=== PATIENT | male | born 1960 | race Caucasian/White ===

== ENCOUNTER 2020-01-04 18:10 | Emergency (ER) | payer OTHER ==
[~2020-01-04] VITALS: Ht 172.7 cm; Wt 65.8 kg
--- OUTSIDE RECORDS SUMMARY | ~2020-01-04 | XMS | Encounter Summary ---
Demographics + + + | Address | [address] | | | [place] [address] | + + + | Home Phone | | + + + | Preferred Language | Unknown | + + + | Marital Status | | + + + | Taoism Affiliation | Unknown | + + + | Race | Unknown | + + + | Ethnic Group | Unknown | + + + Author + + + | Author | [facility] | | | and [facility] | + + + | Organization | [facility] | | | and [facility] | + + + | Address | Unknown | + + + | Phone | Unavailable | + + + Support + + +---------+ + | Name | Relationship | Address | Phone | + + +---------+ + | Gayatri Pepe | ECON | Unknown | | + + +---------+ + Care Team Providers + +------+ + | Care Home Sales Consultant Name | Role | Phone | + +------+ + PCP | Unavailable | + +------+ + Encounter Details +--------+ + + + + | Date | Type | Department | Care Team | Description | +--------+ + + + + | 02/01/ | Hospital | C GENERIC IP | Conversion | Diagnosis unknown | | 2016 | Encounter | CONVERSION [address]P [address] | Transaction, | | | | | [address] | Provider Unknown | | | | | [place] | | | | | | [phone] | (Fax) | | | | | | | | +--------+ + + + + Social History + +-------+ +--------+------+ | Tobacco Use | Types | Packs/Day | Years | Date | | | | | Used | | + +-------+ +--------+------+ | Never Assessed | | | | | + +-------+ +--------+------+ + + + | Sex Assigned at | Date Recorded | | | | + + + | Not on file | | + + + + + + + | Job Start Date | Occupation | Industry | + + + + | Not on file | Not on file | Not on file | + + + + + + + + | Travel History | Travel Start | Travel End | + + + + + + | No recent travel history available. | + + documented as of this encounter Plan of Treatment Not on filedocumented as of this encounter Procedures + +--------+ + + + | Procedure Name | Priori | Date/Time | Associated Diagnosis | Comments | | | ty | | | | + +--------+ + + + | CT HEAD WO CONTRAST | Routin | 02/01/2017 | | Results for this | | | e | 9:32 PM | | procedure are in the | | | | PDT | | results section. | + +--------+ + + + documented in this encounter Results CT Head wo Contrast (02/01/2017 9:32 PM PDT) + + | Specimen | + + | | + + + + + | Narrative | Performed At | + + + | This is a non-reportable procedure without a radiologist report and | | | is used for image storage only | | + + + + + | Procedure Note | + + | David Ellis - 04/19/2019 8:40 AM PDT This is a non-reportable procedure | | without a radiologist report and isused for image storage only | + + documented in this encounter Visit Diagnoses + + | Diagnosis | + + | Diagnosis unknown Other unknown and unspecified cause of morbidity or mortality | + + documented in this encounter"
--- OUTSIDE RECORDS SUMMARY | ~2020-01-04 | XMS | Clinical Summary ---
Demographics + + + | Address | [address] | | | [place] [address] | + + + | Home Phone | | + + + | Preferred Language | Unknown | + + + | Marital Status | | + + + | Mormon Affiliation | Unknown | + + + | Race | Unknown | + + + | Ethnic Group | Unknown | + + + Author + + + | Author | [facility] (Historical as of | | | 04-21-19) | + + + | Organization | [facility] (Historical as of | | | 04-21-19) | + + + | Address | Unknown | + + + | Phone | Unavailable | + + + Support + + +---------+ + | Name | Relationship | Address | Phone | + + +---------+ + | Gayatri Young | ECON | Unknown | | + + +---------+ + Care Team Providers + +------+ + | Care Curriculum Consultant Name | Role | Phone | + +------+ + | Dr. Dion | PP | Unavailable | + +------+ + Allergies + + + + + + | Active Allergy | Reactions | Severity | Noted | Comments | | | | | Date | | + + + + + + | Morphine | Other (See Comments) | Medium | 02/03/20 | Pt unable to tell | | | | | 17 | us rxn. Allergy | | | | | | reported from [facility] | | | | | | [facility] that | | | | | | causes patient to be | | | | | | combative. | + + + + + + Current Medications No known medications Active Problems + + + | Problem | Noted Date | + + + | Alcoholic intoxication with complication (HCC) | 02/02/2017 | + + + | Alcohol abuse | 02/02/2017 | + + + | Fall | 02/02/2017 | + + + | Head injury, acute, with loss of consciousness 20 minutes (HCC) | 02/02/2017 | + + + | Laceration of head | 02/02/2017 | + + + Immunizations + + + + | Name | Dates Previously Given | Next Due | + + + + | Pneumococcal | 02/02/2017 | | | Polysaccharide | | | | 23-valent | | | + + + + Social History + +-------+ +--------+------+ | Tobacco Use | Types | Packs/Day | Years | Date | | | | | Used | | + +-------+ +--------+------+ | Current Every Day | | 1 | | | | Smoker | | | | | + +-------+ +--------+------+ + + | Tobacco Cessation: Counseling Given: Yes | + + + + + | Sex Assigned at | Date Recorded | | | | + + + | Not on file | | + + + Last Filed Vital Signs + + + + | Vital Sign | Reading | Time Taken | + + + + | Blood Pressure | 150/95 | 02/03/2017 11:53 AM PDT | + + + + | Pulse | 100 | 02/03/2017 11:53 AM PDT | + + + + | Temperature | 36.2 C (97.2 F) | 02/03/2017 11:53 AM PDT | + + + + | Respiratory Rate | 20 | 02/03/2017 11:53 AM PDT | + + + + | Oxygen Saturation | 98% | 02/03/2017 11:53 AM PDT | + + + + | Inhaled Oxygen | - | - | | Concentration | | | + + + + | Weight | 69.3 kg (152 lb 11.2 | 02/03/2017 3:58 AM PDT | | | oz) | | + + + + | Height | 177.8 cm (5' 10") | 02/01/2017 11:55 PM PDT | + + + + | Body Mass Index | 21.91 | 02/03/2017 3:58 AM PDT | + + + + Plan of Treatment + + + + + | Health Maintenance | Due Date | Last Done | Comments | + + + + + | Vaccine: | | | | | Dtap/Tdap/Td (1 - | 8 | | | | Tdap) | | | | + + + + + | Colon Cancer | | | | | Screening | 9 | | | | (Colonoscopy) | | | | + + + + + | Vaccine: Zoster (1 | | | | | of 2) | 9 | | | + + + + + | Vaccine: Influenza | | | | | (Season Ended) | 0 | | | + + + + + | Vaccine: | Completed | 02/02/2017 | | | Pneumococcal 19-64 | | | | | (PPSV23 only) Medium | | | | | Risk | | | | + + + + + Results Not on filefrom Last 3 Months Insurance + +--------+ +------+-------+ + | Payer | Benefi | Subscriber | Type | Phone | Address | | | t Plan | ID | | | | | | / | | | | | | | Group | | | | | + +--------+ +------+-------+ + | MEDICAID | MEDICA | [id number] | | | [address] | | | ID | | | | [place] | | | OTHER | | | | [phone] | | | STATE | | | | | + +--------+ +------+-------+ + + +--------+ +--------+ + + | Guarantor Name | Accoun | Relation to | Date | Phone | Billing Address | | | t Type | Patient | of | | | | | | | | | | + +--------+ +--------+ + + | OSMAR YOUNG | Person | Self [birth year] Home: | [address] | | [place] | vivian/Zachery | | [phone] | [phone] [place] [address] | | | [place] | | | [phone] | | + +--------+ +--------+ + +
--- OUTSIDE RECORDS SUMMARY | ~2020-01-04 | XMS | Encounter Summary ---
Demographics + + + | Address | [address] | | | [place] [address] | + + + | Home Phone | | + + + | Preferred Language | Unknown | + + + | Marital Status | | + + + | Adventist Affiliation | Unknown | + + + | Race | Unknown | + + + | Ethnic Group | Unknown | + + + Author + + + | Author | [facility] | | | and [place] | + + + | Organization | [facility] | | | and [facility] [...] Team Providers + +------+ + | Care Commissary Agent Name | Role | Phone | + [...] [place] | | | | | | [phone] | (Fax) | | | | | [...]
--- OUTSIDE RECORDS SUMMARY | ~2020-01-04 | XMS | Encounter Summary ---
Demographics + + + | Address | [address] | | | [place] [address] | + + + | Home Phone | | + + + | Preferred Language | Unknown | + + + | Marital Status | | + + + | Muslim Affiliation | Unknown | + + + | Race | Unknown | + + + | Ethnic Group | Unknown | + + + Author + + + | Author | [facility] | | | and [place] | + + + | Organization | [facility] | | | and [place] | [...] Team Providers + +------+ + | Care Field Engineer Name | Role | Phone | + +------+ + PCP | Unavailable | + +------+ + Encounter Details +--------+ + + + + | Date | Type | Department | Care Team | Description | +--------+ + + + + | 02/01/ | Hospital | [facility] | Jinny Machado DO | | | 2017 - | Encounter | [facility] | [address] | | | | | CARE FLO[address] | [place] [address] | | | 02/03/ | | [address] | [phone] | | | 2017 | | [place], [place] | | | | | | [address] | | | | | | [phone] | | | +--------+ + + + [...] + + documented as of this encounter Last Filed Vital Signs + + + + + | Vital Sign | Reading | Time Taken | Comments | + + + + + | Blood Pressure | 150/95 | 02/03/2017 11:54 AM | | | | | PDT | | + + + + + | Pulse | 100 | 02/03/2017 11:54 AM | | | | | PDT | | + + + + + | Temperature | 36.2 C (97.2 F) | 02/03/2017 11:54 AM | | | | | PDT | | + + + + + | Respiratory Rate | 20 | 02/03/2017 11:54 AM | | | | | PDT | | + + + + + | Oxygen Saturation | - | - | | + + + + + | Inhaled Oxygen | - | - | | | Concentration | | | | + + + + + | Weight | 69.3 kg (152 lb 11.2 | 02/03/2017 11:54 AM | | | | oz) | PDT | | + + + + + | Height | 177.8 cm (5' 10") | 02/03/2017 11:54 AM | | | | | PDT | | + + + + + | Body Mass Index | 21.91 | 02/03/2017 11:54 AM | | | | | PDT | | + + + + + documented in this encounter Discharge Summaries Rk Miranda MD - 02/03/2017 11:11 AM PDT Discharge Summaries by BONNIE Emery at 02/03/17 1111 Author: BONNIE Emery Service: Hospitalist Author Type: Resident-Y1 Filed: 02/03/17 1404 Date of Service: 02/03/17 1111 Status: Attested Mineral Mixer: BONNIE Emery (Resident-Y1) Cosigner: Mercedes Hester MD at 02/03/17 190 7 Attestation signed by Mercedes Hester MD at 02/03/17 1907 Patient seen and examined with Resident, agree with plan. Mercedes Hester MD [facility] Service: Hospitalist Discharge Summary Pt: Osmar Pepe AGE/SEX: 56 y.o. male ROOM: [address] [place] [address] PCP: PER PT NONE : 1960 Admit date: 02/01/2017 Discharge date and time: 02/03/2017 1:36 PM Admitting Physician: Jinny Machado DO Discharge Physician: Mercedes Hester MD (attending physician) Rk Miranda MD (resident physician) Consults: Treatment Team: Consulting Physician: Evan Martinez MD Admitting Provider: Jinny Machado DO Primary Discharge Diagnoses: Active Problems: Alcoholic intoxication with complication (HCC) Alcohol abuse Fall Head injury, acute, with loss of consciousness 20 minutes (HCC) Laceration of head Resolved Problems: * No resolved hospital problems. * Discharged Condition: good Significant Diagnostic Studies: Ct Head Without Contrast 02/03/2017 1. Small 5 mm parenchymal hemorrhage in the anterior left frontal lobe, stable. and Hospital Course: As per H&P by Jinny Machado DO: The patient is a 56 y.o. male with significant past medical history of alcohol abuse and as thma who presents from [facility] ED after he had a witness fall and LOC. His report ed to the ED physician that they had been sitting in a hot tub for about 15 minutes. He got out and was walking and fell and struck his head on the pavement and had about 20 minutes LO C. Upon arrival in ED he was "combative, swinging and cursing". Pt became cooperative when p dirk were called. He was also given a total of 4 mg IV ativan prior to transfer and was adam adamaris in 4-point restraints. He was sent to the ICU for close monitoring d/t finding of small (5mm) intraparenchymal hemorrhage in the left frontal lobe. CT head was otherwise neg. His c ervical spine CT was degraded some by motion artifact but did not show e/o fracture or dislo cation. Pt arrived to ICU without C-collar in place and obtunded. C-collar was placed as c-s pine not able to be cleared yet. Patient was placed on alcohol withdrawal protocol. Patient stabilized and was transferred t hospitalist service. Patient's condition improve and had a CIWA score of 4. Repeat head CT on day of discharge showed no progression of hemorrhage. Neurology cleared patient for disc harge and recommended repeat head CT without contrast in 4 weeks prior to follow up appointm ent. He also recommended 3 more days of Keppra. This was discussed with patient who agreed w ith plan. I also advised patient to stop drinking alcohol and to consider counseling for alc ohol addition. He and his stated they are working on it. said the house is now alc ohol free. Patient was stable for discharge home. Discharge Vitals: Filed Vitals: 02/03/17 0349 02/03/17 0358 02/03/17 0820 02/03/17 1153 BP: 149/87 154/104 150/95 Pulse: 77 86 100 Temp: 98.6 F (37 C) 97.9 F (36.6 C) 97.2 F (36.2 C) TempSrc: Oral Oral Axillary Resp: 24 22 20 Height: Weight: 69.264 kg (152 lb 11.2 oz) SpO2: 96% 97% 98% Discharge Exam: General Appearance: thin, elderly male, Alert and cooperative, and appears to be in no acut e distress. HEENNT: Normocephalic and atraumatic. EOMI. Hearing grossly intact. No nasal discharge. No JVD present. No tracheal deviation. 2 cm wound on left spiritism, healing, dried blood noted. M oist oral mucosa Cardiovascular: Regular rate, Rhythm is regular. No murmurs appreciated. Peripheral pulses intact. Pulmonary/Chest: Lungs are clear to auscultation bilaterally. Effort is normal. Normal sho th sounds. Abdominal: Soft, nontender, large ventral hernia noted . Normoactive bowel sounds. No guard ing or rebound tenderness. Extremities: no swelling or erythema of lower extremities bilaterally Neurological: Oriented to person, place, and time. Skin: Skin is warm and dry. No rash noted. Bruising noted on left upper extremity Psychiatric:The patient was able to demonstrate good judgement and reason, without hallucin ations, no abnormal affect or abnormal behaviors during the examination. LABS: Recent Labs Lab 02/03/17615 WBC 8.03 HGB 13.2 HCT 39.5 PLT 192 NEUTOPHILPCT 74.81 MONOPCT 7.90 Recent Labs Lab 02/03/1761502/02/17 1038 02/02/17 0414 NA 140 -- 140 K 4.1 4.2 4.0 CL 104 -- 107 CO2 27 -- 22* BUN 16 -- 14 CREATININE 1.1 -- 1.0 Invalid input(s): LABALBU Recent Labs Lab 02/03/1761502/02/17 1038 02/02/17 0414 MG 1.9 2.1 2.0 Recent Labs Lab 02/02/174 CKTOTAL 261 Disposition: Home Patient Instructions: Medication List START taking these medications levETIRAcetam 500 MG tablet QTY: 7 tablet Refills: 0 Commonly known as: KEPPRA Take 1 tablet by mouth 2 (two) times daily. Where to Get Your Medications You can get these medications from any pharmacy Bring a paper prescription for each of these medications - levETIRAcetam 500 MG tablet Evan Martinez MD [address] [facility] [address] In 4 weeks Neurology Follow up [facility] [address] [place] [address] Schedule an appointment as soon as possible for a visit in 4 weeks Please get Head CT done before seeing Neurology Signed: Rk Miranda MD-R1 02/03/2017 1:36 PM Junito Archer MD, have reviewed this note. documented in this en counter Progress Notes Conversion Transaction, Provider Unknown - 02/03/2017 2:36 PM PDTFormatting of this note m ight be different from the original. Nurse Progress Note by Anabel Resendiz RN at 02/03/17 0099 Author: Anabel Resendiz RN Service: (none) Author Type: Registered Nurse Filed: 02/03/17 3658 Date of Service: 02/03/17 1436 Status: Signed Mineral Mixer: Anabel Resendiz RN (Registered Nurse) Pt discharged home via private vehicle with spouse. Discharge instructions and prescriptio n given and questions answered. No concerns. Pt walked out with RN at his insistence. CLAIRE Resendiz RN onver deanne Transaction, Provider Unknown - 02/03/2017 5:45 AM PDT Nurse Progress Note by Madison Garcia RN at 02/03/17544 Author: Madison Garcia RN Service: (none) Author Type: Registered Nurse Filed: 02/03/17546 Date of Service: 02/03/17544 Status: Signed Mineral Mixer: Madison Garcia RN (Registered Nurse) Patient slept most of shift. He continues to have some tremors in hands while awake. CIWA h ighest score was 4. He is still impulsive and gets out of bed without calling but appears [facility] on his feet. He is voiding but did not use urinal. Bed alarm and tab alarm used for saf ety. onver deanne Transaction, Provider Unknown - 02/02/2017 5:13 AM PDT Pharmacy Note by Shirley Campa RPH at 02/02/17512 Author: Shirley Campa RPH Service: Pharmacy Author Type: Pharmacist Filed: 02/02/17512 Date of Service: 02/02/17512 Status: Signed Mineral Mixer: Shirley Campa RPH (Pharmacist) Clinical Pharmacy Note: Renal Monitoring Height: 177.8 cm Weight: 69.3 kg CREATININE: 1 (02/02/17 0414) Estimated creatinine clearance - 79.9 mL/min Currently there are no medications needing to be adjusted. Pharmacy will continue to monito r for changes in medication orders and in renal function and adjust accordingly per protocol . Shirley Campa PharmD 02/02/2017 5:13 AM docume nted in this encounter Plan of Treatment Not on filedocumented as of this encounter Procedures + +--------+ + + + | Procedure Name | Priori | Date/Time | Associated Diagnosis | Comments | | | ty | | | | + +--------+ + + + | CT HEAD WO CONTRAST | Routin | 02/03/2017 | | Results for this | | | e | 7:00 AM | | procedure are in the | | | | PDT | | results section. | + +--------+ + + + | EXTERNAL LAB: CBC | Routin | 02/03/2017 | | Results for this | | | e | 6:16 AM | | procedure are in the | | | | PDT | | results section. | + +--------+ + + + | PHOSPHORUS | Routin | 02/03/2017 | | Results for this | | | e | 6:16 AM | | procedure are in the | | | | PDT | | results section. | + +--------+ + + + | MAGNESIUM | Routin | 02/03/2017 | | Results for this | | | e | 6:16 AM | | procedure are in the | | | | PDT | | results section. | + +--------+ + + + | BASIC METABOLIC | Routin | 02/03/2017 | | Results for this | | PANEL | e | 6:16 AM | | procedure are in the | | | | PDT | | results section. | + +--------+ + + + | POTASSIUM | Routin | 02/02/2017 | | Results for this | | | e | 10:38 AM | | procedure are in the | | | | PDT | | results section. | + +--------+ + + + | MAGNESIUM | Routin | 02/02/2017 | | Results for this | | | e | 10:38 AM | | procedure are in the | | | | PDT | | results section. | + +--------+ + + + | LIPID PANEL | Routin | 02/02/2017 | | Results for this | | | e | 4:14 AM | | procedure are in the | | | | PDT | | results section. | + +--------+ + + + | PHOSPHORUS | Routin | 02/02/2017 | | Results for this | | | e | 4:14 AM | | procedure are in the | | | | PDT | | results section. | + +--------+ + + + | MAGNESIUM | Routin | 02/02/2017 | | Results for this | | | e | 4:14 AM | | procedure are in the | | | | PDT | | results section. | + +--------+ + + + | HEMOGLOBIN A1C | Routin | 02/02/2017 | | Results for this | | | e | 4:14 AM | | procedure are in the | | | | PDT | | results section. | + +--------+ + + + | CK TOTAL | Routin | 02/02/2017 | | Results for this | | | e | 4:14 AM | | procedure are in the | | | | PDT | | results section. | + +--------+ + + + | BASIC METABOLIC | Routin | 02/02/2017 | | Results for this | | PANEL | e | 4:14 AM | | procedure are in the | | | | PDT | | results section. | + +--------+ + + + | CT HEAD WO CONTRAST | Routin | 02/02/2017 | | Results for this | | | e | 2:19 AM | | procedure are in the | | | | PDT | | results section. | + +--------+ + + + | DRUGS OF ABUSE | Routin | 02/02/2017 | | Results for this | | SCREEN, URINE (H) | e | 1:14 AM | | procedure are in the | | | | PDT | | results section. | + +--------+ + + + | MRSA NAAT | Timed | 02/02/2017 | | Results for this | | | | 12:20 AM | | procedure are in the | | | | PDT | | results section. | + +--------+ + + + | POC GLUCOSE | Routin | 02/02/2017 | | Results for this | | | e | 12:02 AM | | procedure are in the | | | | PDT | | results section. | + +--------+ + + + documented in this encounter Results CT Head wo Contrast (02/03/2017 7:00 AM PDT) + + | Specimen | + + | | + + + + + | Impressions | Performed At | + + + | 1. Small 5 mm parenchymal hemorrhage in the anterior left frontal | | | lobe, stable. Electronically signed by Momo Cooper DO on | | | 02/03/2017 7:24 AM | | + + + + + + | Narrative | Performed At | + + + | OSMAR PEPE [address] HEAD WO | | | CONTRAST 02/03/2017 7:00 AM INDICATION: Concussion COMPARISON: | | | 02/02/2017 TECHNIQUE: CT scan of the head without contrast. | | | Helically acquired axial images were obtained. 5 mm thick axial | | | images were reconstructed of the head. Dose reduction techniques were | | | used including automated exposure control, iterative reconstruction | | | technique, and/or automated adjustable mAs based on patient size. | | | FINDINGS: Small parenchymal hemorrhage within the anterior left | | | frontal lobe measuring 5 mm, stable. Mild diffuse cerebral atrophy. No | | | mass or midline shift. Mucous retention cyst left maxillary sinus. | | | Mild amount of fluid within the left mastoid sinus. | | + + + + + | Procedure Note | + + | David Ellis Conversion - 04/19/2019 8:40 AM PDT OSMAR [id number] | | years MaleCT HEAD WO CONTRAST02/03/2017 7:00 AM INDICATION: Concussion COMPARISON: | | 02/02/2017 TECHNIQUE: CT scan of the head without contrast. Helically acquired axial | | images were obtained. 5 mm thick axial images were reconstructed of the head. Dose | | reduction techniques were used including automated exposure control, iterative | | reconstruction technique, and/or automated adjustable mAs based on patient size. | | FINDINGS: Small parenchymal hemorrhage within the anterior left frontal lobe measuring 5 | | mm, stable. Mild diffuse cerebral atrophy. No mass or midline shift. Mucous retention | | cyst left maxillary sinus. Mild amount of fluid within the left mastoid sinus. | | IMPRESSION: 1. Small 5 mm parenchymal hemorrhage in the anterior left frontal lobe, | | stable. | |control, iterative reconstruction | |technique, and/or automated adjustable mAs based on patient size. | | | |FINDINGS: | | | |Small parenchymal hemorrhage within the anterior left frontal lobe measuring 5 mm, stable. Mild diffuse cerebral atrophy. No mass or midline shift. Mucous retention cyst left maxillar y sinus. Mild amount of fluid within the left mastoid sinus. | | | | | |IMPRESSION: | |1. Small 5 mm parenchymal hemorrhage in the anterior left frontal lobe, stable. | | | | | + + External Lab: THI (02/03/2017 6:16 AM PDT) + + + + + + | Component | Value | Ref Range | Performed | Pathologist | | | | | At | Signature | + + + + + + | WBC | 8.03 | 3.80 - 11.00 | EXTERNAL | | | | | K/uL | LAB | | + + + + + + | Red Blood | 3.77 (L) | 4.20 - 5.70 | EXTERNAL | | | Cells | | M/uL | LAB | | | Counted | | | | | + + + + + + | Hemoglobin | 13.2 | 13.2 - 17.0 | EXTERNAL | | | | | g/dL | LAB | | + + + + + + | Hematocrit, | 39.5 | 39.0 - 50.0 % | EXTERNAL | | | POC | | | LAB | | + + + + + + | MCV | 104.6 (H) | 80.0 - 100.0 fl | EXTERNAL | | | | | | LAB | | + + + + + + | MCH | 34.9 (H) | 27.0 - 34.0 pg | EXTERNAL | | | | | | LAB | | + + + + + + | MCHC | 33.4 | 32.0 - 35.5 | EXTERNAL | | | | | g/dL | LAB | | + + + + + + | RDW-CV | 48.6 | 37 - 53 fl | EXTERNAL | | | | | | LAB | | + + + + + + | Platelet | 192 | 150 - 400 K/uL | EXTERNAL | | | Count | | | LAB | | | Plasma | | | | | + + + + + + | MPV | 7.5 | fl | EXTERNAL | | | | | | LAB | | + + + + + + | Differentia | AUTOMATED | | EXTERNAL | | | l Type | | | LAB | | + + + + + + | % Segmented | 74.81 | % | EXTERNAL | | | | | | LAB | | | Neutrophils | | | | | + + + + + + | % | 15.25 | % | EXTERNAL | | | Lymphocytes | | | LAB | | + + + + + + | % Monocytes | 7.90 | % | EXTERNAL | | | | | | LAB | | + + + + + + | % | 1.79 | % | EXTERNAL | | | Eosinophils | | | LAB | | + + + + + + | % Basophils | 0.25 | % | EXTERNAL | | | | | | LAB | | + + + + + + | Absolute | 6.01 | 1.90 - 7.40 | EXTERNAL | | | Segmented | | K/uL | LAB | | | Neutrophils | | | | | + + + + + + | Absolute | 1.22 | 1.00 - 3.90 | EXTERNAL | | | Lymphocytes | | K/uL | LAB | | + + + + + + | Absolute | 0.63 | 0.00 - 0.80 | EXTERNAL | | | Monocytes | | K/uL | LAB | | + + + + + + | Absolute | 0.14 | 0.00 - 0.50 | EXTERNAL | | | Eosinophils | | K/uL | LAB | | + + + + + + | Absolute | 0.02Comment: Testing | 0.00 - 0.10 | EXTERNAL | | | Basophils | performed at [facility], [address] | K/uL | LAB | | | | [address], | | | | | | [place] [address] | | | | + + + + + + + + | Specimen | + + | Blood specimen | | (specimen) | + + + +---------+ + + | Performing | Address | City/State/Zipcode | Phone Number | | Organization | | | | + +---------+ + + | EXTERNAL LAB | | | | + +---------+ + + Phosphorus (02/03/2017 6:16 AM PDT) + + + + + + | Component | Value | Ref Range | Performed | Pathologist | | | | | At | Signature | + + + + + + | PHOSPHORUS | 2.2 (L)Comment: Testing | 2.3 - 4.8 mg/dL | EXTERNAL | | | | performed at [facility], [address] | | LAB | | | | [address], | | | | | | [place] [address] | | | | + + + + + + + + | Specimen | + + | Blood specimen | | (specimen) | + + + +---------+ + + | Performing | Address | City/State/Zipcode | Phone Number | | Organization | | | | + +---------+ + + | EXTERNAL LAB | | | | + +---------+ + + Magnesium (02/03/2017 6:16 AM PDT) + + + + + + | Component | Value | Ref Range | Performed | Pathologist | | | | | At | Signature | + + + + + + | Magnesium | 1.9Comment: Testing | 1.7 - 2.4 mg/dL | EXTERNAL | | | | performed at [facility], [address] | | LAB | | | | [address], | | | | | | [place] [address] | | | | + + + + + + + + | Specimen | + + | Blood specimen | | (specimen) | + + + +---------+ + + | Performing | Address | City/State/Zipcode | Phone Number | | Organization | | | | + +---------+ + + | EXTERNAL LAB | | | | + +---------+ + + Basic Metabolic Panel (02/03/2017 6:16 AM PDT) + + + + + + | Component | Value | Ref Range | Performed | Pathologist | | | | | At | Signature | + + + + + + | Na | 140 | 135 - 145 | EXTERNAL | | | | | mmol/L | LAB | | + + + + + + | K | 4.1 | 3.5 - 4.9 | EXTERNAL | | | | | mmol/L | LAB | | + + + + + + | Cl | 104 | 99 - 109 mmol/L | EXTERNAL | | | | | | LAB | | + + + + + + | CO2 | 27 | 23 - 32 mmol/L | EXTERNAL | | | | | | LAB | | + + + + + + | Anion Gap | 13 | 5 - 20 mmol/L | EXTERNAL | | | | | | LAB | | + + + + + + | Glucose, | 99 | 65 - 99 mg/dL | EXTERNAL | | | Fasting | | | LAB | | + + + + + + | BUN | 16 | 8 - 25 mg/dL | EXTERNAL | | | | | | LAB | | + + + + + + | Creatinine | 1.1 | 0.70 - 1.30 | EXTERNAL | | | | | mg/dL | LAB | | + + + + + + | BUN/Creatin | 15 | | EXTERNAL | | | ine Ratio | | | LAB | | + + + + + + | Calcium | 9.4 | 8.5 - 10.5 | EXTERNAL | | | | | mg/dL | LAB | | + + + + + + | Estimated | >60Comment: GFR <60: | mL/min/1.73m2 | EXTERNAL | | | GFR | CHRONIC KIDNEY DISEASE, | | LAB | | | | IF FOUND OVER A 3 MONTH | | | | | | PERIOD.GFR <15: KIDNEY | | | | | | FAILURE.FOR | | | | | | AMERICANS, MULTIPLY THE | | | | | | CALCULATED GFR BY | | | | | | 1.210.Testing performed | | | | | | at [facility], [address] | | | | | | [facility], | | | | | | [place] [address] | | | | + + + + + + + + | Specimen | + + | Blood specimen | | (specimen) | + + + +---------+ + + | Performing | Address | City/State/Zipcode | Phone Number | | Organization | | | | + +---------+ + + | EXTERNAL LAB | | | | + +---------+ + + Potassium (02/02/2017 10:38 AM PDT) + + + + + + | Component | Value | Ref Range | Performed | Pathologist | | | | | At | Signature | + + + + + + | K | 4.2Comment: Testing | 3.5 - 4.9 | EXTERNAL | | | | performed at [facility];[address] | mmol/L | LAB | | | | [address], [place] | | | | | | [address] | | | | + + + + + + + + | Specimen | + + | Blood specimen | | (specimen) | + + + +---------+ + + | Performing | Address | City/State/Zipcode | Phone Number | | Organization | | | | + +---------+ + + | EXTERNAL LAB | | | | + +---------+ + + Magnesium (02/02/2017 10:38 AM PDT) + + + + + + | Component | Value | Ref Range | Performed | Pathologist | | | | | At | Signature | + + + + + + | Magnesium | 2.1Comment: Testing | 1.7 - 2.4 mg/dL | EXTERNAL | | | | performed at [facility];[address] | | LAB | | | | [address];[place] | | | | | | [address] | | | | + + + + + + + + | Specimen | + + | Blood specimen | | (specimen) | + + + +---------+ + + | Performing | Address | City/State/Zipcode | Phone Number | | Organization | | | | + +---------+ + + | EXTERNAL LAB | | | | + +---------+ + + Phosphorus (02/02/2017 4:14 AM PDT) + + + + + + | Component | Value | Ref Range | Performed | Pathologist | | | | | At | Signature | + + + + + + | PHOSPHORUS | 3.9Comment: Testing | 2.3 - 4.8 mg/dL | EXTERNAL | | | | performed at [facility];[address] | | LAB | | | | [address];[place] | | | | | | [address] | | | | + + + + + + + + | Specimen | + + | Blood specimen | | (specimen) | + + + +---------+ + + | Performing | Address | City/State/Zipcode | Phone Number | | Organization | | | | + +---------+ + + | EXTERNAL LAB | | | | + +---------+ + + Magnesium (02/02/2017 4:14 AM PDT) + + + + + + | Component | Value | Ref Range | Performed | Pathologist | | | | | At | Signature | + + + + + + | Magnesium | 2.0Comment: Testing | 1.7 - 2.4 mg/dL | EXTERNAL | | | | performed at [facility] | | LAB | | | | [address];[place] | | | | | | [address] | | | | + + + + + + + + | Specimen | + + | Blood specimen | | (specimen) | + + + +---------+ + + | Performing | Address | City/State/Zipcode | Phone Number | | Organization | | | | + +---------+ + + | EXTERNAL LAB | | | | + +---------+ + + Hemoglobin A1C (02/02/2017 4:14 AM PDT) + + + + + + | Component | Value | Ref Range | Performed | Pathologist | | | | | At | Signature | + + + + + + | Hemoglobin | 5.2Comment: The [place] | 4.0 - 6.0 % | EXTERNAL | | | A1c | Diabetes Association | | LAB | | | | considers a hemoglobin | | | | | | A1c result of <7.0% to | | | | | | be the goal of diabetic | | | | | | therapy. When results | | | | | | are consistently >8.0%, | | | | | | the ADA suggests | | | | | | reevaluation of the | | | | | | treatment regimen. The | | | | | | testing method used is | | | | | | certified traceable to | | | | | | the Diabetes Control and | | | | | | Complications Trial | | | | | | reference method. | | | | + + + + + + | Glycohemogl | 103Comment: The ADA | mg/dL | EXTERNAL | | | obin | considers an eAG result | | LAB | | | (GHb),Total | of LT 154 mg/dL to be | | | | | | the goal of diabetic | | | | | | therapy. Estimated | | | | | | Average Glucose | | | | | | calculated from | | | | | | hemoglobin A1c by use of | | | | | | the ADA recommended | | | | | | formula.Testing | | | | | | performed at [facility], [address] | | | | | | [facility], | | | | | | [place] [address] | | | | + + + + + + + + | Specimen | + + | | + + + +---------+ + + | Performing | Address | City/State/Zipcode | Phone Number | | Organization | | | | + +---------+ + + | EXTERNAL LAB | | | | + +---------+ + + CK Total (02/02/2017 4:14 AM PDT) + + + + + + | Component | Value | Ref Range | Performed | Pathologist | | | | | At | Signature | + + + + + + | CK, Total | 261Comment: Testing | 55 - 400 U/L | EXTERNAL | | | | performed at [facility];[address] | | LAB | | | | [address];[place], [place] | | | | | | [address] | | | | + + + + + + + + | Specimen | + + | | + + + +---------+ + + | Performing | Address | City/State/Zipcode | Phone Number | | Organization | | | | + +---------+ + + | EXTERNAL LAB | | | | + +---------+ + + Lipid Panel (02/02/2017 4:14 AM PDT) + + + + + + | Component | Value | Ref Range | Performed | Pathologist | | | | | At | Signature | + + + + + + | Cholesterol | 219 (H) | mg/dL | EXTERNAL | | | | | | LAB | | + + + + + + | Triglycerid | 111 | mg/dL | EXTERNAL | | | es | | | LAB | | + + + + + + | HDL | 86 | mg/dL | EXTERNAL | | | | | | LAB | | + + + + + + | LDL, | 111 (H)Comment: Testing | mg/dL | EXTERNAL | | | Calculated | performed at [facility], [address] | | LAB | | | | [address], | | | | | | [place] [address] | | | | + + + + + + + + | Specimen | + + | Blood specimen | | (specimen) | + + + +---------+ + + | Performing | Address | City/State/Zipcode | Phone Number | | Organization | | | | + +---------+ + + | EXTERNAL LAB | | | | + +---------+ + + Basic Metabolic Panel (02/02/2017 4:14 AM PDT) + + + + + + | Component | Value | Ref Range | Performed | Pathologist | | | | | At | Signature | + + + + + + | Na | 140 | 135 - 145 | EXTERNAL | | | | | mmol/L | LAB | | + + + + + + | K | 4.0 | 3.5 - 4.9 | EXTERNAL | | | | | mmol/L | LAB | | + + + + + + | Cl | 107 | 99 - 109 mmol/L | EXTERNAL | | | | | | LAB | | + + + + + + | CO2 | 22 (L) | 23 - 32 mmol/L | EXTERNAL | | | | | | LAB | | + + + + + + | Anion Gap | 15 | 5 - 20 mmol/L | EXTERNAL | | | | | | LAB | | + + + + + + | Glucose, | 81 | 65 - 99 mg/dL | EXTERNAL | | | Fasting | | | LAB | | + + + + + + | BUN | 14 | 8 - 25 mg/dL | EXTERNAL | | | | | | LAB | | + + + + + + | Creatinine | 1.0 | 0.70 - 1.30 | EXTERNAL | | | | | mg/dL | LAB | | + + + + + + | BUN/Creatin | 15 | | EXTERNAL | | | ine Ratio | | | LAB | | + + + + + + | Calcium | 7.9 (L) | 8.5 - 10.5 | EXTERNAL | | | | | mg/dL | LAB | | + + + + + + | Estimated | >60Comment: GFR <60: | mL/min/1.73m2 | EXTERNAL | | | GFR | CHRONIC KIDNEY DISEASE, | | LAB | | | | IF FOUND OVER A 3 MONTH | | | | | | PERIOD.GFR <15: KIDNEY | | | | | | FAILURE.FOR | | | | | | AMERICANS, MULTIPLY THE | | | | | | CALCULATED GFR BY | | | | | | 1.210.Testing performed | | | | | | at [facility];[address] | | [address];[place] [address] | | | | + + + + + + + + | Specimen | + + | | + + + +---------+ + + | Performing | Address | City/State/Zipcode | Phone Number | | Organization | | | | + +---------+ + + | EXTERNAL LAB | | | | + +---------+ + + CT Head wo Contrast (02/02/2017 2:19 AM PDT) + + | Specimen | + + | | + + + + + | Narrative | Performed At | + + + | EXAM: CT HEAD EXAM DATE: 02/02/2017 02:19 AM. CLINICAL | | | HISTORY: Intraparenchymal bleed; altered mental status. | | | COMPARISON: Outside study 02/01/2017. TECHNIQUE: Multiaxial CT | | | images were obtained from the foramen magnum to the vertex. IV | | | contrast: None. Reformats: Coronal. In accordance with CT protocol | | | optimization, one or more of the following dose reduction techniques | | | were utilized for this exam: automated exposure control, adjustment of | | | mA and/or KV based on patient size, or use of iterative | | | reconstructive technique. FINDINGS: 5 mm region of blood density | | | within the left frontal pole, this appears unchanged. No evidence | | | of interval hemorrhage. No extracerebral fluid collection or | | | hydrocephalus. Skull base and bone windows are unremarkable. No | | | evidence of infarct. Impression: Small hyperdensity left frontal | | | pole measures 5 mm, unchanged. No evidence of interval hemorrhage. | | | There is no significant mass effect. RADIA Electronically | | | signed by Flaco Shelton MD on Feb 02 2017 3:04AM Referring Provider | | | Line: [phone] ID: [id number] | | + + + + + | Procedure Note | + + | Caleb, Rad Conversion - 04/19/2019 8:40 AM PDT EXAM:CT HEAD EXAM DATE: 02/02/2017 02:19 | | AM. CLINICAL HISTORY: Intraparenchymal bleed; altered mental status. COMPARISON: | | Outside study 02/01/2017. TECHNIQUE: Multiaxial CT images were obtained from the foramen | | magnum to the vertex. IV contrast: None. Reformats: Coronal. In accordance with CT | | protocol optimization, one or more of the following dose reduction techniques were | | utilized for this exam: automated exposure control, adjustment of mA and/or KV based on | | patient size, or use of iterative reconstructive technique. FINDINGS:5 mm region of | | blood density within the left frontal pole, this appears unchanged. No evidence of | | interval hemorrhage. No extracerebral fluid collection or hydrocephalus. Skull base and | | bone windows are unremarkable. No evidence of infarct. Impression:Small hyperdensity | | left frontal pole measures 5 mm, unchanged. No evidence of interval hemorrhage. There is | | no significant mass effect. RADIA Electronically signed by Flaco Shelton MD on February 022016 3:04AM Referring Provider Line: [phone] ID: [id number] | |FINDINGS: | |5 mm region of blood density within the left frontal pole, this appears unchanged. | | | |No evidence of interval hemorrhage. No extracerebral fluid collection or hydrocephalus. Sku ll base and bone windows are unremarkable. No evidence of infarct. | | | |Impression: | |Small hyperdensity left frontal pole measures 5 mm, unchanged. No evidence of interval hemo rrhage. There is no significant mass effect. | | | |RADIA | | | | Electronically signed by Flaco Shelton MD on Feb 02 2017 3:04AM Referring Provider Line: [phone] ID: [id number] | + + Drugs Of ABuse Screen, Urine (H) (02/02/2017 1:14 AM PDT) + + + + + + | Component | Value | Ref Range | Performed | Pathologist | | | | | At | Signature | + + + + + + | Methampheta | NEGATIVEComment: | | EXTERNAL | | | mine/ | Positive cutoff for AMP | | LAB | | | Amphetamine | = 1000 ng/mL | | | | | Screen, | | | | | | UA, POC | | | | | + + + + + + | Barbiturate | NEGATIVEComment: | | EXTERNAL | | | s Screen, | Positive cutoff for CONNIE | | LAB | | | Urine | = 200 ng/mL | | | | + + + + + + | Benzodiazep | NEGATIVEComment: | | EXTERNAL | | | stephan | Positive cutoff for | | LAB | | | Screen, | BENZO = 200 ng/mL | | | | | Urine | | | | | + + + + + + | Cocaine | NEGATIVEComment: | | EXTERNAL | | | | Positive cutoff for ABIDA | | LAB | | | | = 300 ng/mL | | | | + + + + + + | Methadone | NEGATIVEComment: | | EXTERNAL | | | | Positive cutoff for MTD | | LAB | | | | = 300 ng/mL | | | | + + + + + + | Opiates | NEGATIVEComment: | | EXTERNAL | | | | Positive cutoff for OPI | | LAB | | | | = 300 ng/mL | | | | + + + + + + | PCP | NEGATIVEComment: | | EXTERNAL | | | | Positive cutoff for PCP | | LAB | | | | = 25 ng/mL | | | | + + + + + + | Cannabinoid | NEGATIVEComment: | | EXTERNAL | | | s Screen, | Positive cutoff for | | LAB | | | Serum | THC = 50 ng/mLThe above | | | | | | are unconfirmed | | | | | | screening results. | | | | | | These results are to | | | | | | be used only for medical | | | | | | (i.e.,treatment) | | | | | | purposes. Unconfirmed | | | | | | screening results must | | | | | | not be used for | | | | | | non-medical purposes | | | | | | (e.g., employment | | | | | | testing, legal | | | | | | testing).Testing | | | | | | performed at [facility] | | | | | | [facility];[place], [place] | | | | | | [address] | | | | + + + + + + + + | Specimen | + + | | + + + +---------+ + + | Performing | Address | City/State/Zipcode | Phone Number | | Organization | | | | + +---------+ + + | EXTERNAL LAB | | | | + +---------+ + + MRSA NAAT (02/02/2017 12:20 AM PDT) + + | Specimen | + + | | + + + + + | Narrative | Performed At | + + + | SOURCE NARES(NOSE) MRSA | EXTERNAL LAB | | PCR NEGATIVE Testing | | | performed at [facility];[address] [place] [address];[place] [address] | | + + + + +---------+ + + | Performing | Address | City/State/Zipcode | Phone Number | | Organization | | | | + +---------+ + + | EXTERNAL LAB | | | | + +---------+ + + POC Glucose (02/02/2017 12:02 AM PDT) + + + + + + | Component | Value | Ref Range | Performed | Pathologist | | | | | At | Signature | + + + + + + | Glucose, | 105 (H)Comment: Testing | 65 - 99 mg/dL | EXTERNAL | | | Fingerstick | performed at [facility];[address] | | LAB | | | | [address];[place], [place] | | | | | | [address] | | | | + + + + + + + + | Specimen | + + | | + + + +---------+ + + | Performing | Address | City/State/Zipcode | Phone Number | | Organization | | | | + +---------+ + + | EXTERNAL LAB | | | | + +---------+ + + documented in this encounter Visit Diagnoses Not on filedocumented in this encounter
--- OUTSIDE RECORDS SUMMARY | ~2020-01-04 | XMS | Encounter Summary ---
Demographics + + + | Address | [address] | | | [place] [address] | + + + | Home Phone | | + + + | Preferred Language | Unknown | + + + | Marital Status | | + + + | Oriental Orthodox Affiliation | Unknown | + + + | Race | Unknown | + + + | Ethnic Group | Unknown | + + + Author + + + | Author | [facility] | | | and [place] | + + + | Organization | [facility] | | | and [facility] | [...] Team Providers + +------+ + | Care Airline Security Representative Name | Role | Phone | + [...] [place] | | | | | | [phone] | (Fax) | | | | | [...] + +--------+ + + + | CT CERVICAL SPINE WO | Routin | 02/01/2017 | | Results for this | | CONTRAST | e | 9:30 PM | | procedure are in the | | | | PDT | | results section. | + +--------+ + + + documented in this encounter Results CT Cervical Spine wo Contrast (02/01/2017 9:30 PM PDT) + + | Specimen | [...] Ellis Conversion - 04/19/2019 8:40 AM PDT This is [...]
--- OUTSIDE RECORDS SUMMARY | ~2020-01-04 | XMS | Encounter Summary ---
Demographics + + + | Address | [address] | | | [place] [address] | + + + | Home Phone | | + + + | Preferred Language | Unknown | + + + | Marital Status | | + + + | Spiritism Affiliation | Unknown | + + + | Race | Unknown | + + + | Ethnic Group | Unknown | + + + Author + + + | Author | [facility] | | | and [place] | + + + | Organization | [facility] | | | and [facility] [...] Team Providers + +------+ + | Care Vacuum Closing Machine Operator Name | Role | Phone | + [...] [place] | | | | | | [phone] | (Fax) | | | | | [...]
--- OUTSIDE RECORDS SUMMARY | ~2020-01-04 | XMS | Clinical Summary ---
Demographics + + + | Address | [address] | | | [place] [address] | + + + | Home Phone | | + + + | Preferred Language | Unknown | + + + | Marital Status | | + + + | Presybeterian Affiliation | Unknown | + + + | Race | Unknown | + + + | Ethnic Group | Unknown | + + + Author + + + | Author | [facility] | | | and [place] | + + + | Organization | [facility] | | | and [place] [...] Team Providers + +------+ + | Care Assembler Dc Field Yoke Name | Role | Phone | + +------+ + PCP | Unavailable | + +------+ + Allergies Not on File Medications Not on file Active Problems Not on file Immunizations + + + + | Name | Administration Dates | Next Due | + + + + | PNEUMOCOCCAL | 02/02/2017 | | | POLYSACCHARIDE | | | | 23-VALENT (PPSV23) | | | + + + + [...] recent travel history available. | + + Last Filed Vital Signs + [...] | | + + + + + Plan of Treatment + + + + + | Health Maintenance | Due Date | Last Done | Comments | + + + + + | Vaccine: | | | | | Dtap/Tdap/Td (1 - | 0 | | | | Tdap) | | [...]
--- OUTSIDE RECORDS SUMMARY | ~2020-01-04 | XMS | Clinical Summary ---
Demographics + + + | Address | [address] | | | [place] [address] | + + + | Home Phone | | + + + | Preferred Language | Unknown | + + + | Marital Status | | + + + | Spiritism Affiliation | Unknown | + + + | Race | Unknown | + + + | Ethnic Group | Unknown | + + + Author + + + | Author | [facility] (Historical as of | | | 04-21-19) | + + + | Organization | [facility] (Historical as of | | | 04-21-19) [...] Team Providers + +------+ + | Care Film Rental Clerk Name | Role | Phone | + [...] +------+-------+ + | MEDICAID | MEDICA | [id number] | | | [address] | | | [place] | | | | [place] | | | OTHER | | | | [address] | | | STATE | | | [...] DOUGIE | vivian/Zachery | | 1959 | [phone] [place] [address] | | | gorge | | | [address] | | + +--------+ +--------+ + +
--- OUTSIDE RECORDS SUMMARY | ~2020-01-04 | XMS | Clinical Summary ---
Demographics + + + | Address | [address] | | | [place] [address] | + + + | Home Phone | | + + + | Preferred Language | Unknown | + + + | Marital Status | | + + + | Baptist Affiliation | Unknown | + + + | Race | Unknown | + + + | Ethnic Group | Unknown | + + + Author + + + | Author | [facility] | | | and [facility] | + + + | Organization | [facility] | | | and [facility] [...] Team Providers + +------+ + | Care Publicity Director Name | Role | Phone | + [...]
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
== END 2020-01-04 22:18 | disposition short-term general hospital (02) ==
LOC: ED 18:10
DX: S06.9X9A Unspecified intracranial injury with loss of consciousness of unspecified duration, initial encounter (principal); S02.841A Fracture of lateral orbital wall, right side, initial encounter for closed fracture; S02.40EA Zygomatic fracture, right side, initial encounter for closed fracture; S02.40CA Maxillary fracture, right side, initial encounter for closed fracture; S02.2XXA Fracture of nasal bones, initial encounter for closed fracture; S02.0XXA Fracture of vault of skull, initial encounter for closed fracture; J45.909 Unspecified asthma, uncomplicated; F10.129 Alcohol abuse with intoxication, unspecified; F17.200 Nicotine dependence, unspecified, uncomplicated; W18.30XA Fall on same level, unspecified, initial encounter
CPT/HCPCS: 70450; 70486; 71045; 72125; 80053; 85025; 96365; 96375; 99285-25; G0480; J0295; J1170; J2405; J3010

== ENCOUNTER 2023-05-09 18:12 | Emergency (ER) | payer OTHER ==
[~2023-05-09] VITALS: Ht 172.7 cm; Wt 65.8 kg
[2023-05-09 19:20] LABS: BASOPHILS 0.5 % (0-2); EOSINOPHILS 1.3 % (0-6); HEMATOCRIT 39.8 % (35.0-50.0); HEMOGLOBIN 13.4 g/dL (12.0-18.0); LYMPHOCYTES 21.2 % (24-44); MCH 37.7 (27-36); MCHC 33.8 g/dl (30-36); MCV 111.5 fl (81-99); PLATELET COUNT 253 K/uL (140-440); RBC 3.57 M/ul (4.3-5.7); RDW 14.1 (10.5-15.0)
[2023-05-09 19:36] LABS: SMEAR REVIEW BLOOD SEE COMMENTS
[2023-05-09 19:43] LABS: ACETAMINOPHEN 0 ug/mL (10-30); ALBUMIN 4.2 g/dL (3.4-5.0); ALBUMIN/GLOBULIN RATIO 0.98 (1.1-2.4); ALCOHOL, MEDICAL 236 ng/dL (<3); ALKALINE PHOSPHATASE 130 U/L (46-116); ALT (SGPT) 54 U/L (14-59); ANION GAP 15.7 (7-21); AST (SGOT) 85 U/L (15-37); BILIRUBIN, TOTAL 0.5 ng/dL (0.2-1.0); BUN/CREATININE RATIO 18.42 (6.0-28.6); CALCIUM 9.3 mg/dL (8.5-10.1); CARBON DIOXIDE 27 mmol/L (21-32); CHLORIDE 100 mmol/L (98-107); CREATININE, SERUM 1.14 mg/dL (0.70-1.30); GLOMERULAR FILTRATION RATE,EST 72 mL/min (>60); POTASSIUM 3.7 mmol/L (3.5-5.1); PROTEIN, TOTAL 8.5 g/dL (6.4-8.2); SALICYLATE 3.1 mg/dL (2.8-20.0); TSH, 3RD GENERATION 1.794 uIU/mL (0.358-3.740); UREA NITROGEN 21 mg/dL (7-18)
[2023-05-09 22:58] LABS: BILIRUBIN, URINE NEGATIVE (negative); BLOOD/HGB, URINE NEGATIVE (Negative); KETONE, URINE NEGATIVE (Negative); LEUK ESTERASE, URINE NEGATIVE (negative); NITRITE, URINE NEGATIVE (negative); PH, URINE 5.5 (5-7)
[2023-05-09 23:01] LABS: AMPHETAMINES, UR NEGATIVE (NEGATIVE); BARBITURATES, UR NEGATIVE (NEGATIVE); BENZODIAZEPINES, UR NEGATIVE (NEGATIVE); BUPRENORPHINE,UR NEGATIVE (NEGATIVE); COCAINE, UR NEGATIVE (NEGATIVE); MARIJUANA (THC), UR POSITIVE (NEGATIVE); MDMA, UR NEGATIVE (NEGATIVE); METHADONE, UR NEGATIVE (NEGATIVE); METHAMPHETAMINE, UR NEGATIVE (NEGATIVE); OPIATES, UR NEGATIVE (NEGATIVE); OXYCODONE, UR NEGATIVE (NEGATIVE); PHENCYCLIDINE, UR NEGATIVE (NEGATIVE); TRICYCLIC ANTIDEPRESSANT, UR NEGATIVE (NEGATIVE)
[2023-05-10 11:59] VITALS: BP 150/90
== END 2023-05-10 12:00 | disposition home or self-care (01) ==
LOC: ED 18:12
PROVIDERS: Emergency Medicine
DX: R45.851 Suicidal ideations (principal); F10.129 Alcohol abuse with intoxication, unspecified; J45.909 Unspecified asthma, uncomplicated; F17.200 Nicotine dependence, unspecified, uncomplicated; Z88.5 Allergy status to narcotic agent
CPT/HCPCS: 36415; 80053; 81003; 84443; 85025; 85060; G0480; J1200; J1630; J2060; J3411

== ENCOUNTER 2023-10-15 16:53 | Emergency (ER) | payer SELFPAY ==
[~2023-10-15] VITALS: Ht 172.7 cm; Wt 66.8 kg
[2023-10-15 17:15] LABS: HEMOGLOBIN 11.8 g/dL (12.0-18.0); MCV 110.3 fl (81-99)
[2023-10-15] MEDS ORDERED: LORazepam 2 MG/ML VIAL IV ONE (17:15)
[2023-10-15] MEDS ORDERED: HALOPERIDOL LACTATE 5 MG/ML VIAL ONE (17:17)
[2023-10-15 17:26] LABS: ALBUMIN 3.7 g/dL (3.4-5.0); ALBUMIN/GLOBULIN RATIO 1.03 (1.1-2.4); ANION GAP 21.1 (7-21); BASOPHILS 1.1 % (0-2); BILIRUBIN, TOTAL 0.7 ng/dL (0.2-1.0); BUN/CREATININE RATIO 18.07 (6.0-28.6); CALCIUM 8.6 mg/dL (8.5-10.1); CREATININE, SERUM 1.66 mg/dL (0.70-1.30); EOSINOPHILS 1.1 % (0-6); HEMATOCRIT 35.5 % (35.0-50.0); LYMPHOCYTES 38.3 % (24-44); MCH 36.8 (27-36); MCHC 33.4 g/dl (30-36); MONOCYTES 14.4 % (0-12); NEUTROPHILS 45.1 % (39-80); PLATELET COUNT 197 K/uL (140-440); POTASSIUM 4.1 mmol/L (3.5-5.1); PROTEIN, TOTAL 7.3 g/dL (6.4-8.2); RBC 3.22 M/ul (4.3-5.7); RDW 15.8 (10.5-15.0)
[2023-10-15 17:50] LABS: ABO A; ANTIBODY SCREEN NEGATIVE; RH POSITIVE
[2023-10-15 18:12] LABS: AMPHETAMINES, URINE NEGATIVE (NEGATIVE); BARBITURATES, URINE NEGATIVE (NEGATIVE); BENZODIAZEPINE, URINE NEGATIVE (NEGATIVE); BUPRENORPHINE, URINE NEGATIVE (NEGATIVE); CANNABINOID, URINE POSITIVE (NEGATIVE); COCAINE, URINE NEGATIVE (NEGATIVE); ECSTASY, URINE NEGATIVE (NEGATIVE); FENTANYL, URINE NEGATIVE (NEGATIVE); METHADONE, URINE NEGATIVE (NEGATIVE); OPIATES, URINE NEGATIVE (NEGATIVE); OXYCODONE, URINE NEGATIVE (NEGATIVE); PHENCYCLIDINE, URINE NEGATIVE (NEGATIVE)
[2023-10-15] MEDS ORDERED: MULTIVITAMINS 10 ML,FOLIC ACID 1 MG,THIAMINE HCL 100 MG in SODIUM CHLORIDE 0.9% 1,000 ML IV ONE (19:00)
[2023-10-15] MEDS ORDERED: FOLIC ACID 1 MG/0.2 ML ML ONE (19:24)
[2023-10-15] MEDS ORDERED: DIPHTH,PERTUSS(ACELL),TET VAC 0.5 ML SYRINGE IM ONE (21:15)
== END 2023-10-16 05:40 | disposition home or self-care (01) ==
LOC: ED 16:53
PROVIDERS: Emergency Medicine
DX: S01.01XA Laceration without foreign body of scalp, initial encounter (principal); J45.909 Unspecified asthma, uncomplicated; F10.129 Alcohol abuse with intoxication, unspecified; F17.200 Nicotine dependence, unspecified, uncomplicated; W19.XXXA Unspecified fall, initial encounter; Y90.8 Blood alcohol level of 240 mg/100 ml or more; Z23 Encounter for immunization; Z88.5 Allergy status to narcotic agent
CPT/HCPCS: 36415; 70450; 72125; 80053; 80307; 85025; 86850; 86900; 86901; 90715; G0480; J2060; J3411; J7030

== ENCOUNTER 2024-01-27 09:53 | Emergency (ER) | payer OTHER ==
[2024-01-27 10:10] LABS: BASOPHILS 0.4 % (0-2); EOSINOPHILS 0.5 % (0-6); HEMATOCRIT 35.4 % (35.0-50.0); HEMOGLOBIN 11.6 g/dL (12.0-18.0); LYMPHOCYTES 9.9 % (24-44); MCHC 32.7 g/dl (30-36); MCV 106.8 fl (81-99); MONOCYTES 6.1 % (0-12); NEUTROPHILS 83.1 % (39-80); PLATELET COUNT 205 K/uL (140-440); RBC 3.31 M/ul (4.3-5.7); RDW 16.7 (10.5-15.0)
[2024-01-27] MEDS ORDERED: LACTATED RINGER'S 1,000 ML IV ONE (10:15)
[2024-01-27] MEDS ORDERED: DIPHTH,PERTUSS(ACELL),TET VAC 0.5 ML SYRINGE IM ONE (10:15)
[2024-01-27 10:36] LABS: ALBUMIN 3.7 g/dL (3.4-5.0); ALBUMIN/GLOBULIN RATIO 1.03 (1.1-2.4); ANION GAP 17.4 (7-21); BILIRUBIN, TOTAL 0.3 ng/dL (0.2-1.0); BUN/CREATININE RATIO 15.44 (6.0-28.6); CALCIUM 8.4 mg/dL (8.5-10.1); CREATININE, SERUM 1.23 mg/dL (0.70-1.30); POTASSIUM 4.4 mmol/L (3.5-5.1); PROTEIN, TOTAL 7.3 g/dL (6.4-8.2)
[2024-01-27] MEDS ORDERED: HYDROmorphone HCL 1 MG/ML SYR IV PRN (10:45)
[2024-01-27 10:46] LABS: ABO A; RH POSITIVE
[2024-01-27 10:47] LABS: ANTIBODY SCREEN NEGATIVE
[2024-01-27 12:09] LABS: AMPHETAMINES, URINE NEGATIVE (NEGATIVE); BARBITURATES, URINE NEGATIVE (NEGATIVE); BENZODIAZEPINE, URINE NEGATIVE (NEGATIVE); BUPRENORPHINE, URINE NEGATIVE (NEGATIVE); CANNABINOID, URINE POSITIVE (NEGATIVE); COCAINE, URINE NEGATIVE (NEGATIVE); ECSTASY, URINE NEGATIVE (NEGATIVE); FENTANYL, URINE NEGATIVE (NEGATIVE); METHADONE, URINE NEGATIVE (NEGATIVE); OPIATES, URINE NEGATIVE (NEGATIVE); OXYCODONE, URINE NEGATIVE (NEGATIVE); PHENCYCLIDINE, URINE NEGATIVE (NEGATIVE)
[2024-01-27 15:26] VITALS: BP 114/74
--- NOTE | 2024-01-30 07:06 | EKG ---
[facility] [address] [facility] [place] [address] Signed Normal sinus rhythm Septal infarct , age undetermined Abnormal ECG No previous ECGs available Confirmed by Vinicius Vu ([id number]) on 01/30/2024 7:06:17 AM Electronically Signed By: VINICIUS VU MD 01/30/24705 PATIENT NAME: OSMAR YOUNG Electrocardiogram DATE OF : 58 PHYSICIAN: VINICIUS VU MD REPORT #: [id number] REPORT IS CONFIDENTIAL AND NOT TO BE RELEASED WITHOUT AUTHORIZATION
== END 2024-01-27 15:34 | disposition short-term general hospital (02) ==
LOC: ED 09:53
PROVIDERS: Emergency Medicine
DX: S02.19XA Other fracture of base of skull, initial encounter for closed fracture (principal); S02.32XA Fracture of orbital floor, left side, initial encounter for closed fracture; S02.832A Fracture of medial orbital wall, left side, initial encounter for closed fracture; S02.2XXA Fracture of nasal bones, initial encounter for closed fracture; S22.43XA Multiple fractures of ribs, bilateral, initial encounter for closed fracture; J93.9 Pneumothorax, unspecified; F10.129 Alcohol abuse with intoxication, unspecified; Y90.7 Blood alcohol level of 200-239 mg/100 ml; J96.90 Respiratory failure, unspecified, unspecified whether with hypoxia or hypercapnia; R74.01 Elevation of levels of liver transaminase levels; R74.8 Abnormal levels of other serum enzymes; R79.89 Other specified abnormal findings of blood chemistry; J45.909 Unspecified asthma, uncomplicated; F17.200 Nicotine dependence, unspecified, uncomplicated; W10.9XXA Fall (on) (from) unspecified stairs and steps, initial encounter; Z88.5 Allergy status to narcotic agent
CPT/HCPCS: 36415; 70450; 70486; 70498; 71045; 71260; 72125; 73030; 80053; 80307; 82553; 83605; 83690; 84484; 85025; 86850; 86900; 86901; 90471; 90715; 93005; 93010; 99285-25; G0480; J1170; J7121; Q9967

== ENCOUNTER 2024-07-27 16:23 | Emergency (ER) | payer MEDICARE ==
[~2024-07-27] VITALS: Ht 172.7 cm; Wt 61.7 kg
[2024-07-27 17:18] LABS: BASOPHILS 0.5 % (0-2); HEMATOCRIT 38.3 % (35.0-50.0); HEMOGLOBIN 12.8 g/dL (12.0-18.0); LYMPHOCYTES 22.2 % (24-44); MCH 36.4 (27-36); MCHC 33.5 g/dl (30-36); MCV 108.4 fl (81-99); MONOCYTES 9.7 % (0-12); NEUTROPHILS 66.6 % (39-80); PLATELET COUNT 199 K/uL (140-440); RBC 3.53 M/ul (4.3-5.7); RDW 15.2 (10.5-15.0)
[2024-07-27 17:37] LABS: ALBUMIN 3.4 g/dL (3.4-5.0); ALBUMIN/GLOBULIN RATIO 0.94 (1.1-2.4); BILIRUBIN, TOTAL 0.4 ng/dL (0.2-1.0); BUN/CREATININE RATIO 14.81 (6.0-28.6); CALCIUM 7.9 mg/dL (8.5-10.1); CREATININE, SERUM 1.08 mg/dL (0.70-1.30)
[2024-07-27] MEDS ORDERED: MULTIVITAMINS THERAPEUTIC 1 EA TAB PO ONE (19:00)
[2024-07-27] MEDS ORDERED: FOLIC ACID 1 MG TAB PO ONE (19:00)
[2024-07-27 19:14] LABS: MAGNESIUM 1.6 mg/dL (1.8-2.4); PHOSPHORUS, INORGANIC 2.3 mg/dL (2.5-4.9)
[2024-07-27] MEDS ORDERED: QUETIAPINE FUMARATE 25 MG TAB PO ONE (19:15)
[2024-07-27] MEDS ORDERED: FAMOTIDINE 20 MG/ 2 ML VIAL IV ONE (19:15)
[2024-07-27] MEDS ORDERED: CHLORDIAZEPOXIDE 25 MG CAP PO ONE (19:15)
[2024-07-27 19:42] LABS: BILIRUBIN, URINE NEGATIVE (negative); BLOOD/HGB, URINE NEGATIVE (Negative); KETONE, URINE NEGATIVE (Negative); LEUK ESTERASE, URINE NEGATIVE (negative); NITRITE, URINE NEGATIVE (negative); PH, URINE 5.5 (5-7)
[2024-07-27] MEDS ORDERED: NICOTINE POLACRILEX 4 MG LOZENGE BUCCAL PRN (19:45)
[2024-07-27 19:58] LABS: AMPHETAMINES, URINE NEGATIVE (NEGATIVE); BARBITURATES, URINE NEGATIVE (NEGATIVE); BENZODIAZEPINE, URINE NEGATIVE (NEGATIVE); BUPRENORPHINE, URINE NEGATIVE (NEGATIVE); CANNABINOID, URINE POSITIVE (NEGATIVE); COCAINE, URINE NEGATIVE (NEGATIVE); ECSTASY, URINE NEGATIVE (NEGATIVE); FENTANYL, URINE NEGATIVE (NEGATIVE); METHADONE, URINE NEGATIVE (NEGATIVE); OPIATES, URINE NEGATIVE (NEGATIVE); OXYCODONE, URINE NEGATIVE (NEGATIVE); PHENCYCLIDINE, URINE NEGATIVE (NEGATIVE)
[2024-07-27] MEDS ORDERED: MAGNESIUM OXIDE 400 MG TABLET PO ONE (20:15)
[2024-07-27] MEDS ORDERED: LORazepam 2 MG/ML VIAL IV ONE (20:30)
[2024-07-27] MEDS ORDERED: LORazepam 1 MG TAB PO ONE (20:30)
[2024-07-28] MEDS ORDERED: CHLORDIAZEPOXID25 MG PO (03:48)
[2024-07-28 09:40] VITALS: BP 152/107
== END 2024-07-28 09:40 | disposition home or self-care (01) ==
LOC: ED 16:23
PROVIDERS: Emergency Medicine; Internal Medicine
DX: F10.129 Alcohol abuse with intoxication, unspecified (principal); F17.200 Nicotine dependence, unspecified, uncomplicated; Z88.5 Allergy status to narcotic agent
CPT/HCPCS: 36415; 70450; 72125; 73130; 80053; 80307; 81003; 83735; 84100; 85025; 96374; 96375; 99284-25; A9270; A9270-GY; G0480; J2060